=== PATIENT | male | born 2005 | race Caucasian/White ===

== ENCOUNTER 2024-01-08 14:44 | Emergency (ER) | payer OTHER, SELFPAY ==
[2024-01-08 14:53] VITALS: BP 142/86
[2024-01-08 17:08] LABS: % Basophils 0.5 % (0-2); % Eosinophils 0.7 % (0-6); % Immature Granulocytes 0.2 % (0-0.5); % Lymphocytes 22.8 % (20.5-51.1); % Neutrophils 66.8 % (42.2-75.2); Absolute Basophils 0.1 10^3/uL (0-0.2); Absolute Eosinophils 0.1 10^3/uL (0-0.7); Absolute Lymphocytes 2.2 10^3/uL (1.2-3.4); Absolute Monocytes 0.9 10^3/uL (0.1-0.6); Absolute Neutrophils 6.4 10^3/uL (1.4-6.5); Hematocrit 45.3 % (39.0-52.0); Hemoglobin 15.9 g/dL (13.0-18.0); Mean Corp Hgb Conc. 35.1 g/dL (33.0-37.0); Mean Corpuscular Hgb 30.1 pg (27.0-31.0); Mean Corpuscular Volume 85.6 fL (80.0-94.0); Mean Platelet Volume 9.3 fL (7.4-10.4); Nucleated Red Blood Cells % 0 % (-); Platelet Count 201 10^3/uL (130-400); Red Blood Cell Count 5.29 10^6/uL (4.70-6.10); Red Cell Dist. Width 12.4 % (11.5-14.5); White Blood Cell Count 9.5 10^3/uL (4.8-10.8)
[2024-01-08 17:11] LABS: Urine Albumin Negative (Neg - Trace); Urine Bilirubin Negative (Negative); Urine Character Clear (Clear); Urine Color Straw; Urine Glucose Negative (Negative); Urine Ketone Negative (Negative); Urine Leukocyte Negative (Negative); Urine Nitrite Negative (Negative); Urine Occult Blood Negative (Negative); Urine Urobilinogen Negative (Neg - 1+); Urine pH 6.5 (5.0-9.0)
[2024-01-08 17:20] LABS: ALT (SGPT) 30 U/L (0-50); AST (SGOT) 29 U/L (17-59); Albumin 4.5 g/dl (3.5-5.0); Alkaline Phosphatase 61 U/L (38-126); Blood Urea Nitrogen 15 mg/dl (9-20); Calcium 9.1 mg/dl (8.4-10.2); Carbon Dioxide 27 mmol/L (22-30); Chloride 104 mmol/L (98-107); Glucose 147 mg/dl (70-99); Lipase 56 U/L (23-300); Potassium 4.1 mmol/L (3.5-5.1); Sodium 137 mmol/L (135-145); Total Bilirubin 0.3 mg/dl (0.2-1.3); Total Protein 7.1 g/dl (6.3-8.2); eGFR > 60.00
[2024-01-08 17:49] VITALS: BMI 26.4
--- NOTE | 2024-01-08 20:27 | ED.GENMED ---
History of Present Illness
General
Chief Complaint: Abdominal Symptoms
Source: patient
Exam Limitations: none
Time Seen by Provider: 01/08/24 17:14
Nursing documentation reviewed up to this point in time: agreed with
Travel History
Have you had any contact with someone who has COVID-19?: No
Do you have any symptoms of coronavirus? Fever > 100 degrees, chills, cough, shortness of breath, sore throat, loss of taste or smell, muscle aches, or headache?: No
History of Present Illness
History of Present Illness:
18-year-old male without significant chronic medical conditions presenting to the emergency department today with concerns of 1 week of left-sided lower abdominal pain also has had change in bowel movements and feels somewhat bloated denies history
of GI issues in the past noted some red discoloration to stool 3 days ago. Denies any fever chest pain shortness of breath nausea or vomiting.
Review of Systems
Review of Systems
Allergies reviewed?: Yes
All Other Systems: ROS reviewed and negative except as documented in HPI and ROS
Phy Exam
Physical Exam
Physical Exam:
GENERAL: Alert , in no apparent distress
EYE: pupils equal and reactive
NECK: Supple, no significant adenopathy.
ENT: o/p clr, mmm.
CARDIAC: Regular rate and rhythm .
LUNGS: Clear breath sounds bilaterally, no acute respiratory distress, no wheezes/rales/rhonchi
ABDOMEN: Abdominal pain the left lower quadrant otherwise benign abdomen. Patient refused rectal examination
NEUROLOGICAL: Alert and oriented, no focal neuro deficits
SKIN: Warm and dry, skin intact.
MUSCULOSKELETAL: No edema, well perfused.
PSYCH: Normal and appropriate interaction.
Course
Orders/Labs/Results
Orders:
Orders
01/08/24 16:43
IV Insert/Care/Rem.- Treatment PRN
01/08/24 16:46
Complete Blood Count/With Diff Urgent
Comprehensive Metabolic Panel Urgent
Lipase Urgent
Urinalysis Reflex To Culture Urgent
Date Specimen was Collected: 01/08/24
Time Specimen was Collected: 16:43
01/08/24 17:51
CT Abd/Pel (IV only)-DH only Urgent
Comment:
Reason For Exam: llq pain
Abnormal Lab Results
01/08/24
16:46
Absolute Monos (auto) 0.9 H 10^3/uL
(0.1-0.6)
Glucose 147 H mg/dl
(70-99)
01/08/24 16:46
01/08/24 16:46
Vital Signs
Initial and Last Documented VS:
Initial Vital Signs
Temp Pulse Resp BP Pulse Ox
98.0 F 114 16 142/86 98
01/08/24 14:53 01/08/24 14:53 01/08/24 14:53 01/08/24 14:53 01/08/24 14:53
Last Documented Vital Signs
Temp Pulse Resp BP Pulse Ox
98.0 F 87 19 121/74 100
01/08/24 14:53 01/08/24 20:32 01/08/24 20:32 01/08/24 20:32 01/08/24 20:32
MDM/Problems Addressed
MDM/Problems Addressed:
18-year-old male presenting to the emergency department today with concerns of 1 week of abdominal discomfort mainly to the left side and feelings of bloating and pressure to the abdomen. Also noted some redness to his stool couple days ago which
has since resolved. Upon arrival initial heart rate was elevated but improved without specific treatment. Labs were unremarkable. Abdominal examination did show pain to the left side of the abdomen CT scan was obtained that did not show emergent
findings patient's symptoms could be consistent with constipation. He was offered to do a rectal examination to evaluate for potential hemorrhoids however he refused this and will follow close with the primary care doctor. Return precautions given.
*Critical Care Note
Total Time (30-74mins, 75-104mins- exclusive of procedures): Not Applicable
ED Attending Note
-
Portions of this chart may have been created with voice recognition software.� Occasional wrong word or��sound alike� substitutions may have occurred due to the inherent limitations of voice recognition software.
Discharge Plan
Departure
Patient Disposition: Home (Routine Discharge)
Date of Disposition: 01/08/24
Time of Disposition: 20:27
Patient with high blood pressure during this ER visit?: No
Condition: Good
Covid-19: Not Applicable
Discharge Problem:
Abdominal pain
Instructions: Abdominal Pain
Prescriptions:
New
polyethylene glycol 3350 [ClearLax] 17 gram/dose powder
4 g PO DAILY Qty: 119 0RF
Referrals:
Shruti De La Rosa MD [Family Provider] -
Activity Restrictions/Additional Instructions:
You came to the emergency department today with concerns of abdominal discomfort. Here your reassuring evaluation. This could be constipation. Please take MiraLAX once daily and stay very hydrated. Please also use a hemorrhoidal ointment
[id number] as the bleeding could be from hemorrhoid. Return to the emergency department immediately for any worsening, new or concerning symptoms. Otherwise please follow-up closely with the primary care doctor within 1 to 2 weeks.
Interventions
Interventions:
*General Assessment Last Done: 01/08/24 17:03
ED- Fall Risk Assessment Last Done: 01/08/24 17:02
*ED COVID-19 Vaccine History Last Done: 01/08/24 14:53
*Nursing Disposition Last Done: 01/08/24 20:33
RZ-Cguabg-Zwxoylzryp Assessment Last Done: 01/08/24 17:02
Discharge Date and Time
Discharge Date/Time: 01/08/24 20:34
[2024-01-08 20:32] VITALS: BP 121/74
== END 2024-01-08 20:34 | disposition home or self-care (01) ==
LOC: EMR 14:44
PROVIDERS: EMERGENCY PHYSICIAN Emergency Medicine; FAMILY PHYSICIAN Emergency Medicine
DX: R10.32 Left lower quadrant pain (principal); R14.0 Abdominal distension (gaseous)
CPT/HCPCS: 99285; 74177; 80053; 81003; 83690; 85025; Q9967

== ENCOUNTER 2024-11-16 18:32 | Emergency (ER) | payer OTHER, SELFPAY ==
[2024-11-16 18:42] VITALS: BP 124/65
[2024-11-16 18:58] LABS: % Basophils 0.6 % (0-2); % Eosinophils 1.4 % (0-6); % Immature Granulocytes 0.5 % (0-0.5); % Lymphocytes 21.2 % (20.5-51.1); % Neutrophils 67.3 % (42.2-75.2); Absolute Basophils 0.1 10^3/uL (0-0.2); Absolute Eosinophils 0.2 10^3/uL (0-0.7); Absolute Immature Granulocytes 0.1 10^3/uL (0-0.05); Absolute Monocytes 1.3 10^3/uL (0.1-0.6); Absolute Neutrophils 9.5 10^3/uL (1.4-6.5); Hematocrit 44.6 % (39.0-52.0); Hemoglobin 15.5 g/dL (13.0-18.0); Mean Corp Hgb Conc. 34.8 g/dL (33.0-37.0); Mean Corpuscular Hgb 30.1 pg (27.0-31.0); Mean Corpuscular Volume 86.6 fL (80.0-94.0); Mean Platelet Volume 8.9 fL (7.4-10.4); Nucleated Red Blood Cells % 0 % (-); Platelet Count 209 10^3/uL (130-400); Red Blood Cell Count 5.15 10^6/uL (4.70-6.10); Red Cell Dist. Width 12.4 % (11.5-14.5); White Blood Cell Count 14.1 10^3/uL (4.8-10.8)
[2024-11-16 19:10] LABS: ALT (SGPT) 35 U/L (0-50); AST (SGOT) 29 U/L (17-59); Albumin 4.4 g/dl (3.5-5.0); Alkaline Phosphatase 57 U/L (38-126); Blood Urea Nitrogen 20 mg/dl (9-20); Calcium 9.3 mg/dl (8.4-10.2); Carbon Dioxide 31 mmol/L (22-30); Chloride 98 mmol/L (98-107); Glucose 96 mg/dl (70-99); Sodium 137 mmol/L (135-145); Total Bilirubin 0.3 mg/dl (0.2-1.3); Total Protein 6.8 g/dl (6.3-8.2); eGFR > 60.00
[2024-11-16 23:21] VITALS: BP 124/79; BMI 28.7
--- NOTE | 2024-11-17 00:56 | ED.GENMED ---
History of Present Illness
General
Chief Complaint: Rectal Bleeding
Source: patient
Exam Limitations: none
Time Seen by Provider: 11/17/24 00:10
Nursing documentation reviewed up to this point in time: agreed with
History of Present Illness
History of Present Illness:
19-year-old male with history as documented presents to the emergency room for evaluation of bloody diarrhea. Patient reports symptoms started about 10 days ago and have been constant since that time. He reports soft liquidy stools with blood
mixed in with every bowel movement. He says he will have some occasional crampy abdominal pain associated with it. He denies any vomiting. Denies any fevers or chills. Denies any recent antibiotics, denies any recent travel. He does note that
he had an episode of blood mixed with stools about a year ago that resolved after few days. He says that he did call and schedule an appointment with his primary doctor for Wednesday and he has scheduled an appointment to see a GI doctor in early
December given that this is his second episode but with persistent symptoms decided to come to the ER for evaluation
Review of Systems
Review of Systems
All Other Systems: ROS reviewed and negative except as documented in HPI and ROS
Constitutional: Denies fever
Respiratory: Denies trouble breathing
Cardiac: Denies chest pain or palpitations
ABD/GI: Reports abdominal pain, diarrhea and bloody stools; Denies nausea or vomiting
: Denies flank pain
Musculoskeletal: Denies neck pain or back pain
Neurological: Denies headache
Phy Exam
Physical Exam
Physical Exam:
General: Awake, alert, oriented x3; no acute distress
Head: Normocephalic, atraumatic
Eyes: Conjunctiva normal, sclera anicteric
Throat: Airway intact, handling secretions
Neck: Trachea midline, supple without meningismus
Lungs: Breathing comfortably no distress
Heart: Regular rate and rhythm
Abd: Soft, non distended, nontender
Rectal: No external hemorrhoids or fissures noted, no stool or blood noted in the rectal vault, no internal masses
Neuro: No gross deficits
Extremities: Warm and well-perfused
Scores
Heart Failure Risk
Heart Failure Risk Score: Not Applicable
Heart Score for Chest Pain Patients
STEMI patient?: Not applicable
Withdrawal Assessment of Alcohol
Withdrawal Assessment Completed?: Not applicable
Course
Orders/Labs/Results
Orders:
Orders
11/16/24 18:49
Complete Blood Count/With Diff Urgent
Comprehensive Metabolic Panel Urgent
11/17/24 00:51
Amoxicillin 875 mg/Clav 125 mg [Augmentin 875 mg/125 mg] 1 tablet PO NOW STA
11/17/24 00:53
Stool Culture Urgent
SHANNON Source: Feces/Stool
Specimen Description:
Date Specimen was Collected: 11/17/24
Time Specimen was Collected: 00:57
Abnormal Lab Results
11/16/24
18:49
WBC 14.1 H 10^3/uL
(4.8-10.8)
Abs Immat Gran (auto) 0.1 H 10^3/uL
(0-0.05)
Absolute Neuts (auto) 9.5 H 10^3/uL
(1.4-6.5)
Absolute Monos (auto) 1.3 H 10^3/uL
(0.1-0.6)
Carbon Dioxide 31 H mmol/L
(22-30)
11/16/24 18:49
11/16/24 18:49
Vital Signs
Initial and Last Documented VS:
Initial Vital Signs
Temp Pulse Resp BP Pulse Ox
36.7 C 95 18 124/65 100
11/16/24 18:42 11/16/24 18:42 11/16/24 18:42 11/16/24 18:42 11/16/24 18:42
Last Documented Vital Signs
Temp Pulse Resp BP Pulse Ox
36.7 C 72 16 124/79 100
11/16/24 18:42 11/16/24 23:21 11/16/24 23:21 11/16/24 23:21 11/16/24 23:21
MDM/Problems Addressed
Differential Diagnosis Includes:
Colitis, Crohn's/UC, bleeding hemorrhoid
MDM/Problems Addressed:
19-year-old male presents with bloody diarrhea for the past 10 days. Vitals stable. Exam as above�notably essentially unremarkable rectal examination. Labs sent off including a CBC which showed a marginal leukocytosis, normal robust hemoglobin of
15.5. CMP no clinically significant abnormalities. No fever and no abdominal tenderness, no indication for emergent imaging at this point in time. We did send stool studies off for culture. My clinical impression at this point is that this is
likely a case of colitis. Given that there is some blood with his diarrhea reasonable to cover with antibiotics pending stool culture. He already has follow-up appointment scheduled with his primary on Wednesday as well as with gastroenterology and I
think this is a reasonable follow-up plan. Advised regarding bland diet and we spoke about detailed return precautions. All questions answered.
*Pulse Oximetry
Patient hypoxic: no
*Critical Care Note
Total Time (30-74mins, 75-104mins- exclusive of procedures): Not Applicable
Data Reviewed
Source: patient
Further Testing Considered But Not Given:
Considered CT abdomen and pelvis as above
ED Attending Note
-
Portions of this chart may have been created with voice recognition software.� Occasional wrong word or��sound alike� substitutions may have occurred due to the inherent limitations of voice recognition software.
Discharge Plan
Departure
Patient Disposition: Home (Routine Discharge)
Date of Disposition: 11/17/24
Time of Disposition: 00:53
Patient with high blood pressure during this ER visit?: No
Discharge Problem:
Blood in stool, Diarrhea
Instructions: Bloody Stools, Adult (DC)
Prescriptions:
New
amoxicillin-pot clavulanate 875-125 mg tablet
1 tab PO BID Qty: 14 0RF
No Action
polyethylene glycol 3350 [ClearLax] 17 gram/dose powder
4 g PO DAILY Qty: 119 0RF
Referrals:
Shruti De La Rosa MD [Family Provider] - Keep scheduled appt
Activity Restrictions/Additional Instructions:
Thank you for visiting the Emergency Department at [facility].
1. Please schedule a follow up appointment as directed. Call first thing tomorrow morning to make an appointment.
2. If indicated, please take your medications as instructed and indicated on discharge paperwork.
3. If any of your symptoms do not improve, or persist, or become more severe within 6-12 hours, please return to the emergency department for further care.
4. Please return to the emergency department if you develop a headache, neck pain/stiffness, fever greater than 100.4F, chest pain, shortness of breath, persistent nausea, vomiting, slurred speech, difficulty walking, numbness/tingling, weakness,
signs of infection or any other symptoms that are worrisome to you.
Please call [phone] if you have any questions.
Interventions
Interventions:
*Risk Screen - Suicide Last Done: 11/16/24 23:21
*General Assessment Last Done: 11/16/24 23:21
*Neglect/Abuse Screening Last Done: 11/16/24 23:21
*ED COVID-19 Vaccine History Last Done: 11/16/24 23:21
*Nursing Disposition Last Done: 11/17/24 01:15
KY-Blrocq-Eniglugpai Assessment Last Done: 11/16/24 23:21
ED- Cardiac Assessment Last Done: 11/16/24 23:21
ED- Pulmonary Assessment Last Done: 11/16/24 23:21
Discharge Date and Time
Print Language: [place]
[2024-11-17] MEDS: AUGMENTIN 875 MG/125 MG 1 TABLET PO (01:00)
== END 2024-11-17 01:15 | disposition home or self-care (01) ==
LOC: EMR 18:32
PROVIDERS: Emergency Medicine; EMERGENCY PHYSICIAN Emergency Medicine; FAMILY PHYSICIAN Emergency Medicine
DX: K92.1 Melena (principal); R19.7 Diarrhea, unspecified
CPT/HCPCS: 99283; 80053; 85025; 87045; 87046; 87427

== ENCOUNTER 2024-11-24 20:01 | Inpatient (IN) | payer OTHER, SELFPAY ==
[2024-11-24 12:06] VITALS: BP 135/88
--- NOTE | 2024-11-24 12:08 | ED.GENMED ---
ED Provider Triage
<Tree Wisdom PA-C - Last Filed: 11/24/24 12:11>
-
Patient seen by provider in Triage?: Seen in Triage
Attestation: A medical screening examination has been initiated by a qualified medical provider. Based on the assessment performed at this time, it has been determined that an emergent medical condition may exist and the patient has been informed
that further medical evaluation and possible additional diagnostic testing may be needed.
HPI: 19-year-old male presents the emergency department for evaluation of continued abdominal pain and bloody diarrhea. Was seen here last week and diagnosed presumptively with colitis, treated with Augmentin however symptoms of not improved
GENERAL: Alert , in no apparent distress
EYE: No visual abnormalities.
NECK: Trachea midline
ENT: No visible abnormalities.
LUNGS: No acute respiratory distress
NEUROLOGICAL: Alert and oriented
SKIN: Skin intact. No visible changes.
MUSCULOSKELETAL: Moving extremities normally
PSYCH: Normal and appropriate interaction.
This is a medical evaluation conducted in person to initiate diagnostic evaluation and provide initial therapeutics. Please see further documentation by the treating clinician.
History of Present Illness
<Tree Wisdom PA-C - Last Filed: 11/24/24 12:11>
General
Chief Complaint: Abdominal Symptoms
Time Seen by Provider: 11/24/24 13:20
<Ochoa Khan DO - Last Filed: 11/24/24 16:06>
General
Source: patient
History of Present Illness
History of Present Illness:
19-year-old male presents to the emergency room complaining of frequent bloody stools over the past 3 weeks or so. Patient also had about 15 pound weight loss over that period of time. Patient had a similar episode about 10 months ago for which
she was seen in the emergency room. At that time he had frequent bloody stools for about a week and 1/2 to 2 weeks. Symptoms eventually resolved and he was doing well until this latest episode. Patient has not seen a retail product advisor in the
past. He does have abdominal pain currently that waxes and wanes in intensity. He has not been eating because he has a poor appetite and because when he does eat his crampy abdominal pain seems to worsen.
Phy Exam
<Ochoa Khan DO - Last Filed: 11/24/24 16:06>
Physical Exam
Physical Exam:
General: Awake, Alert, Oriented X3. Very thin no acute distress.
Vitals: Tachycardia
Head: Atraumatic
Eyes: Pupils equal, EOMI
Throat: Airway intact, no exudates
Neck: Trachea midline
Lungs: Clear and equal b/l
Heart: Regular rate, no murmurs
Abd: Soft, mild, diffusely tender, No pulsatile mass
Rectal: Deferred
Neuro: Nonfocal
Skin: Warm, dry, no rash
Extremities: pulses equal b/l, no edema
Course
<Tree Wisdom PA-C - Last Filed: 11/24/24 12:11>
Orders/Labs/Results
Orders:
Orders
11/24/24 12:09
Iohexol [Omnipaque] 50 ml .ROUTE .RUST-MED ONE
11/24/24 12:10
CT Abd/pel W Iv And Oral Contr Urgent
Comment:
Reason For Exam: abd pain/bloody diarrhea
Iohexol [Omnipaque] See Protocol PO NOW STA
11/24/24 12:30
CRP [C-Reactive Protein] Urgent
Complete Blood Count/With Diff Urgent
Comprehensive Metabolic Panel Urgent
ESR [Erythrocyte Sed Rate] Urgent
Manual Differential Urgent
11/24/24 13:47
0.9% Sodium Chloride 1000 ml [Nss] 1,000 ml IV BOLUS
11/24/24 14:09
CDIFF [C difficile Antigen & Toxins] Urgent
SHANNON Source: Feces/Stool
Specimen Description:
11/24/24 15:50
Calprotectin, Fecal [S] Urgent
Abnormal Lab Results
11/24/24
12:30
WBC 15.1 H 10^3/uL
(4.8-10.8)
Abs Neuts (Manual) 11.0 H 10^3/uL
(1.4-6.5)
Band Neutrophils 29 H %
(0-3)
Lymphocytes (Manual) 15 L %
(20-51)
Monocytes (Manual) 10 H %
(2-9)
11/24/24 12:30
11/24/24 12:30
Vital Signs
Initial and Last Documented VS:
Initial Vital Signs
Temp Pulse Resp BP Pulse Ox
98.5 F 114 16 135/88 93
11/24/24 12:06 11/24/24 12:06 11/24/24 12:06 11/24/24 12:06 11/24/24 12:06
Last Documented Vital Signs
Temp Pulse Resp BP Pulse Ox
98.5 F 82 16 118/58 100
11/24/24 12:06 11/24/24 15:53 11/24/24 15:53 11/24/24 15:53 11/24/24 15:53
Jayelt;Ochoa Khan DO - Last Filed: 11/24/24 16:06>
Orders/Labs/Results
Orders:
Orders
11/24/24 12:09
Iohexol [Omnipaque] 50 ml .ROUTE .STK-MED ONE
11/24/24 12:10
CT Abd/pel W Iv And Oral Contr Urgent
Comment:
Reason For Exam: abd pain/bloody diarrhea
Iohexol [Omnipaque] See Protocol PO NOW STA
11/24/24 12:30
CRP [C-Reactive Protein] Urgent
Complete Blood Count/With Diff Urgent
Comprehensive Metabolic Panel Urgent
ESR [Erythrocyte Sed Rate] Urgent
Manual Differential Urgent
11/24/24 13:47
0.9% Sodium Chloride 1000 ml [Nss] 1,000 ml IV BOLUS
11/24/24 14:09
CDIFF [C difficile Antigen & Toxins] Urgent
SHANNON Source: Feces/Stool
Specimen Description:
11/24/24 15:50
Calprotectin, Fecal [S] Urgent
Abnormal Lab Results
11/24/24
12:30
WBC 15.1 H 10^3/uL
(4.8-10.8)
Abs Neuts (Manual) 11.0 H 10^3/uL
(1.4-6.5)
Band Neutrophils 29 H %
(0-3)
Lymphocytes (Manual) 15 L %
(20-51)
Monocytes (Manual) 10 H %
(2-9)
11/24/24 12:30
11/24/24 12:30
Vital Signs
Initial and Last Documented VS:
Initial Vital Signs
Temp Pulse Resp BP Pulse Ox
98.5 F 114 16 135/88 93
11/24/24 12:06 11/24/24 12:06 11/24/24 12:06 11/24/24 12:06 11/24/24 12:06
Last Documented Vital Signs
Temp Pulse Resp BP Pulse Ox
98.5 F 82 16 118/58 100
11/24/24 12:06 11/24/24 15:53 11/24/24 15:53 11/24/24 15:53 11/24/24 15:53
Jayelt;Ochoa Khan DO - Last Filed: 11/24/24 16:06>
MDM/Problems Addressed
Differential Diagnosis Includes:
Crohn's disease, ulcerative colitis, infectious colitis
MDM/Problems Addressed:
Overall presentation seems most consistent with inflammatory bowel disease. Discussed patient's presentation with Dr. Ramirez. She came to the emergency room to evaluate the patient. Requests stool studies which have been ordered. Management will
be based upon results of the stool studies. Will hold off on further antibiotics as he just completed a course of p.o. antibiotics. Patient did have a 15 pound weight loss and he is already quite thin.
<Ochoa Khan DO - Last Filed: 11/24/24 16:06>
*Radiology
Radiology exam reviewed: radiology read reviewed
*Pulse Oximetry
Patient hypoxic: no
*Critical Care Note
Total Time (30-74mins, 75-104mins- exclusive of procedures): Not Applicable
ED Attending Note
<Tree Wisdom PA-C - Last Filed: 11/24/24 12:11>
-
Portions of this chart may have been created with voice recognition software.� Occasional wrong word or��sound alike� substitutions may have occurred due to the inherent limitations of voice recognition software.
Discharge Plan
Departure
Patient Disposition: Admit
Date of Disposition: 11/24/24
Time of Disposition: 16:04
Presentation/result/management discussed w/ accepting MD/DO: Hospitalist
Condition: Fair
Discharge Problem:
Colitis
Prescriptions:
No Action
polyethylene glycol 3350 [ClearLax] 17 gram/dose powder
4 g PO DAILY Qty: 119 0RF
amoxicillin-pot clavulanate 875-125 mg tablet
1 tab PO BID Qty: 14 0RF
Referrals:
Shruti De La Rosa MD [Family Provider] -
Interventions
Interventions:
*Risk Screen - Suicide Last Done: 11/24/24 12:06
*General Assessment Last Done: 11/24/24 15:53
*Neglect/Abuse Screening Last Done: 11/24/24 12:06
*ED COVID-19 Vaccine History Last Done: 11/24/24 15:53
RE-Vrodzq-Gzagyxxbct Assessment Last Done: 11/24/24 14:38
Discharge Date and Time
Print Language: NEPALI
[2024-11-24] MEDS: OMNIPAQUE 50 ML PO (12:11)
[2024-11-24 12:44] LABS: Hematocrit 48.4 % (39.0-52.0); Hemoglobin 17.2 g/dL (13.0-18.0); Mean Corp Hgb Conc. 35.5 g/dL (33.0-37.0); Mean Corpuscular Hgb 30.8 pg (27.0-31.0); Mean Corpuscular Volume 86.6 fL (80.0-94.0); Mean Platelet Volume 8.6 fL (7.4-10.4); Platelet Count 238 10^3/uL (130-400); Red Blood Cell Count 5.59 10^6/uL (4.70-6.10); Red Cell Dist. Width 12.7 % (11.5-14.5); White Blood Cell Count 15.1 10^3/uL (4.8-10.8)
[2024-11-24 12:58] LABS: ALT (SGPT) 34 U/L (0-50); AST (SGOT) 24 U/L (17-59); Albumin 4.6 g/dl (3.5-5.0); Alkaline Phosphatase 56 U/L (38-126); Blood Urea Nitrogen 14 mg/dl (9-20); Calcium 8.7 mg/dl (8.4-10.2); Carbon Dioxide 29 mmol/L (22-30); Chloride 98 mmol/L (98-107); Glucose 93 mg/dl (70-99); Potassium 4.4 mmol/L (3.5-5.1); Sodium 137 mmol/L (135-145); Total Bilirubin 0.9 mg/dl (0.2-1.3); Total Protein 6.6 g/dl (6.3-8.2); eGFR > 60.00
[2024-11-24 13:12] LABS: Band Neutrophils 29 % (0-3); Eosinophils 2 % (0-6); Lymphocytes 15 % (20-51); Monocytes 10 % (2-9); Platelets Checked Yes; Segmented Neutrophils 44 % (42-75)
[2024-11-24 13:13] LABS: Normal RBC Morphology Yes; Total Cells Counted 100
[2024-11-24 13:21] LABS: Erythrocyte Sed Rate 9 mm/hour (0-20)
[2024-11-24 13:30] LABS: C-Reactive Protein < 5.00 mg/L (0.0-10.00)
[2024-11-24] MEDS: NSS 1000 IV (13:52)
[2024-11-24 15:53] VITALS: BP 118/58
--- NOTE | 2024-11-24 16:15 | CON.GI ---
Consultation
-
Date/Time Consultation Requested: 11/24/2024, 4 PM
Date/Time Consultation Performed: 11/24/2024, 4 PM
Requesting Provider: Dr. Khan, emergency room
Performing Provider: Dr. Ramirez
Reason for Consultation: Bloody diarrhea
Medical History
Chief Complaint / HPI
Chief Complaint: Bloody diarrhea
History of Present Illness:
Donnie is a 19-year-old male with no significant past medical history who comes in with 2 to 3 weeks of frequent multiple episodes of bloody diarrhea. Gets abdominal cramping and pain during the bowel movements and if he eats. He has lost 15 pounds
over these past few weeks. He was here on 16 November and had a stool culture done that was negative. No C. difficile was tested. At that time he did have a leukocytosis of 14,000, no inflammatory studies were done. Today, 11/24/2024 white count
15,000, normal CRP, stool studies have been ordered.
CT scan was done with oral and IV contrast. There is no oral contrast past the hepatic flexure but there is suspicious wall thickening of the transverse to the sigmoid. No pneumatosis obstruction or free air.
When patient was here in October he was given a round of Augmentin.
Patient has never been seen by outpatient GI and has an appointment for December. No family history of inflammatory bowel disease. Denies any outpatient medications although he has been taking few Imodium at night just to get through the night.
Patient states he has multiple more than 10 bloody bowel movements over the past 2 weeks.
Past Medical History
Past Medical History: None
Past Surgical History: None
Social History
Tobacco: Non-Smoker
Drug: None
Living: With Family
Family History
Family History: Other (Denies IBD)
Allergies / Home Medications
Allergy/AdvReac Type Severity Reaction Status Date / Time
No Known Allergies Allergy Verified 11/24/24 12:06
�Medication �Instructions �Recorded
polyethylene glycol 3350 17 4 g PO DAILY #119 grams 01/08/24
gram/dose oral powder (ClearLax)
amoxicillin 875 mg-potassium 1 tab PO BID #14 tabs 11/17/24
clavulanate 125 mg tablet
Review of Systems
-
All other systems: A 12 pt ROS was Negative except as stated above in HPI
Vital Signs
Temp Pulse Resp BP Pulse Ox
98.5 F 82 16 118/58 100
11/24/24 12:06 11/24/24 15:53 11/24/24 15:53 11/24/24 15:53 11/24/24 15:53
Physical Exam
Exam
General: No Apparent Distress
HEENT: Normocephalic and Anicteric
Respiratory: Clear
Cardiac: S1/S2
GI: Soft and Tender (Mild tenderness diffusely in the lower abdomen)
Neuro: AO x 3
Psych: Calm
Results
WBC 15.1 10^3/uL (4.8-10.8) H 11/24/24 12:30
Hgb 17.2 g/dL (13.0-18.0) 11/24/24 12:30
Hct 48.4 % (39.0-52.0) 11/24/24 12:30
MCV 86.6 fL (80.0-94.0) 11/24/24 12:30
Plt Count 238 10^3/uL (130-400) 11/24/24 12:30
Sodium 137 mmol/L (135-145) 11/24/24 12:30
Potassium 4.4 mmol/L (3.5-5.1) 11/24/24 12:30
Chloride 98 mmol/L (98-107) 11/24/24 12:30
Carbon Dioxide 29 mmol/L (22-30) 11/24/24 12:30
BUN 14 mg/dl (9-20) 11/24/24 12:30
Creatinine 1.3 mg/dL (0.7-1.3) 11/24/24 12:30
Calcium 8.7 mg/dl (8.4-10.2) 11/24/24 12:30
Total Bilirubin 0.9 mg/dl (0.2-1.3) 11/24/24 12:30
AST 24 U/L (17-59) 11/24/24 12:30
ALT 34 U/L (0-50) 11/24/24 12:30
Alkaline Phosphatase 56 U/L (38-126) 11/24/24 12:30
Diagnostic Image Results:
11/24/2024 white count 15,000, normal CRP, stool studies have been ordered.
CT scan was done with oral and IV contrast. There is no oral contrast past the hepatic flexure but there is suspicious wall thickening of the transverse to the sigmoid. No pneumatosis obstruction or free air.
Prior GI Procedures: None
EGD:
Colonoscopy:
Assessment / Plan
-
Donnie is a 19-year-old male with no significant past medical history who had an episode in December 2023 with acute onset bloody diarrhea who had no GI issues in the interim until September. In the September he started having urgent diarrhea now for the
past 2 to 3 weeks he has lost 15 pounds and has significant urgency abdominal cramping and bloody diarrhea found to have colitis on CT scan from the sigmoid to the transverse colon
# Infectious versus inflammatory
-- Check C. difficile, calprotectin
-- If C. difficile is negative we will proceed to flexible sigmoidoscopy for likely diagnosis of ulcerative colitis which would be a new diagnosis
-- Hold off on steroids until we have the C. difficile back
-- Clear liquids, IV fluids, once daily PPI, DVT prophylaxis
Data Reviewed
-
CT Scan: Report Reviewed by me
Old Records: Reviewed
-
-
Thank you for consultation and allowing me to participate in the patient's care. Please call the rehabilitation aide GI physician during the after hours with any questions or concerns.
[2024-11-24 18:00] VITALS: BMI 24.8
--- NOTE | 2024-11-24 18:11 | EDRN ---
Pt has had lower abdominal pain x 3 weeks and says it has gotten worse this week. Pt has had bloody diarrhea and reportedly lost weight going from 165lbs - 154 lbs in 3 weeks. Pt was on abx during this time period. Pt denies fever/chills/cough,
cp, sob, urinary symptoms, weakness, dizziness. Pt knew he needed a CT which prompted today's ED visit. Pt says this happened last year and he was discharged because CT was normal.
--- NOTE | 2024-11-24 19:37 | HPS.HSE ---
Family Physician
-
Family Physician: Shruti De La Rosa MD
Chief Complaint
-
Rectal bleeding
History of Present Illness
19-year-old man presents with continued abdominal pain and bloody diarrhea. He was seen here last week and diagnosed with presumptive colitis and treated with Augmentin, however symptoms have not improved. During my exam he had to go to the toilet
twice. The CT in the ER showed:
Markedly limited evaluation of large bowel due to marked paucity of intra-abdominal fat and lack of oral contrast opacification distal to the hepatic flexure of the large bowel.
Findings suspicious for concentric wall thickening of the transverse colon, descending colon and sigmoid, such as COLITIS.
No findings to suggest colonic pneumatosis, intestinal obstruction or free air.
Small volume free fluid in the dependent true pelvis.
Medical History
Past Medical History
Past Medical History: Reports Other
Additional Past Medical History:
SVT (supraventricular tachycardia)
Elevated testosterone level in male
Past Surgical History: Reports None
Social History
Tobacco: Non-smoker
Alcohol: Occasional
Personal: Single
Family History
Family History: Not pertinent
Allergies / Home Medications
Allergies reflects when Allergies were last updated in [facility].
Home Medications with original date entered in [facility]
Allergy/Medication List:
Allergies
Allergy/AdvReac Type Severity Reaction Status Date / Time
No Known Allergies Allergy Verified 11/24/24 12:06
Home Medications
No Meds [No Current Medications] 11/24/24
Review of Systems
-
History Source: Patient
A 12 point ROS was completed and negative except as noted: Yes
Physical Exam
Vital Signs
Vital Signs
Temp Pulse Resp BP Pulse Ox
98.5 F 82 16 118/58 100
11/24/24 12:06 11/24/24 15:53 11/24/24 15:53 11/24/24 15:53 11/24/24 15:53
Physical Exam
General: Well Developed, Well Nourished, Conversant and Appears in Distress
HEENT: NormoCephalic, Anicteric, Moist mucous membranes, Good Dentition, Nose Appears Normal and Ears Appear Normal
Respiratory: Clear
Cardiac: S1/S2 and Regular Rhythm
GI: Soft, Non Distended and Tender
Musculoskeletal: No Clubbing, No Cyanosis and No Edema
Skin: Warm and Dry; No Rash
Neuro: Awake, Alert, Oriented and AO x 3
Psych: Calm
Laboratory Results
-
11/24/24 12:30
11/24/24 12:30
Laboratory Results
Total Bilirubin 0.9 mg/dl (0.2-1.3) 11/24/24 12:30
AST 24 U/L (17-59) 11/24/24 12:30
ALT 34 U/L (0-50) 11/24/24 12:30
Alkaline Phosphatase 56 U/L (38-126) 11/24/24 12:30
Data Reviewed
-
Lab Data: Labs Reviewed by me
Impression/Plan
-
IMPRESSION:
19 man with rectal bleeding. Patient seen by GI. Gi states:
'urgent diarrhea now for the past 2 to 3 weeks he has lost 15 pounds and has significant urgency abdominal cramping and bloody diarrhea found to have colitis on CT scan from the sigmoid to the transverse colon
Infectious versus inflammatory
-- Check C. difficile, calprotectin
-- If C. difficile is negative we will proceed to flexible sigmoidoscopy for likely diagnosis of ulcerative colitis which would be a new diagnosis
-- Hold off on steroids until we have the C. difficile back
-- Clear liquids, IV fluids, once daily PPI, DVT prophylaxis
PLAN:
1. Bloody diarrhea - GI consult appreciated
Follow GI recommendations
Full code
VCD for DVTp
[2024-11-24 21:15] VITALS: BP 120/73; BMI 24.4
[2024-11-24] MEDS: ROXICODONE 5 MG PO (22:07)
[2024-11-24] MEDS: LOVENOX 40 MG SC (22:08)
[2024-11-24] MEDS: PROTONIX 40 MG PO (22:08)
[2024-11-24] MEDS: SOLU-MEDROL PF 20 MG IV (22:10)
[2024-11-24 23:51] VITALS: BP 102/73; BP 110/76; BP 127/69; PULSE 118; PULSE 87; PULSE 94
--- NOTE | 2024-11-24 23:51 | PTCARENOTE ---
Receive pt from ER. Pt alert oriented X3, calm and cooperative. Pt assist X1 to bed, steady gait. Pt oriented to the room, call chaney within reach. Pt states that he has lower abd pain. The pain is 7/10 and is throbbing in nature. VSS (T=99.7, HR=87,
RR=16, IY=189/73, PkL9=658% on RA). Pt states that he is having a bloody diarrhea, 2 episodes since admitted to the floor. Oxycodone 5mg given for pain as per order. Pt is on full liquids diet. Will continue to monitor the pt.
[2024-11-25] MEDS: SOLU-MEDROL PF 20 MG IV ×3 (05:13→21:23)
[2024-11-25 06:55] LABS: Hematocrit 42.5 % (39.0-52.0); Hemoglobin 15.1 g/dL (13.0-18.0); Mean Corp Hgb Conc. 35.5 g/dL (33.0-37.0); Mean Corpuscular Hgb 30.5 pg (27.0-31.0); Mean Corpuscular Volume 85.9 fL (80.0-94.0); Mean Platelet Volume 8.8 fL (7.4-10.4); Platelet Count 239 10^3/uL (130-400); Red Blood Cell Count 4.95 10^6/uL (4.70-6.10); Red Cell Dist. Width 12.7 % (11.5-14.5); White Blood Cell Count 14.3 10^3/uL (4.8-10.8)
[2024-11-25 07:17] VITALS: BP 108/63
[2024-11-25 07:18] VITALS: BP 116/65; BP 119/57; BP 125/65
[2024-11-25 07:27] LABS: Blood Urea Nitrogen 13 mg/dl (9-20); Carbon Dioxide 22 mmol/L (22-30); Chloride 99 mmol/L (98-107); Estimated Creatinine Clearance 91 ml/min; Glucose 95 mg/dl (70-99); Potassium 4.4 mmol/L (3.5-5.1); Sodium 134 mmol/L (135-145); eGFR > 60.00
--- NOTE | 2024-11-25 07:57 | W.PN.HOSP.TC ---
Addendum entered and electronically signed by Iman Perez MD 11/25/24 15:35:
I saw and evaluated the patient independently. I reviewed the resident�s note and agree with findings and plan as documented by Dr. Brady.
GENERAL: well developed, well nourished, male in no apparent distress
HEENT: NC/AT
HEART: regular rate and rhythm, +S1, +S2
LUNGS : clear to auscultation bilaterally
ABDOM: soft, nontender, nondistended, + bowel sounds
EXT: no cyanosis, clubbing, or edema
NEUROLOGIC: grossly intact
Bloody diarrhea--Likely due to ulcerative colitis--Patient reports 15 LB weight loss in the past 3 weeks--Prior history of bloody stools 10 months ago--apprec GI--C. diff neg--started on IV steroids--Patient was seen in the ED last week, was sent on
Augmentin without any relief--Stool studies�negative for Salmonella/Shigella/Campylobacter, negative for C. difficile--Hepatitis B�negative, TB QuantiFERON pending--CT abdomen�evidence of sigmoid to transverse colon colitis--PPI, pain
control--advance diet--FLEX sig Wednesday
DVT prophylaxis�Lovenox
code status--Full code
Original Note:
Today's Communication/Plan
-
Advance diet as tolerated
Continue with methylprednisolone
Flexible sigmoidoscopy on Wednesday
Assessment / Plan
Assessment / Plan
19-year-old man presenting to the ED with abdominal pain and bloody diarrhea since 3 weeks.
Impression/plan
Bloody diarrhea
Likely due to ulcerative colitis versus gastroenteritis
Patient reports 15 LB weight loss in the past 3 weeks
Prior history of bloody stools 10 months ago.
GI on board
Elevated white count in the ED at 15K, trended down to 14K today
Patient was seen in the ED last week, was sent on Augmentin without any relief.
Stool studies�negative for Salmonella/Shigella/Campylobacter, negative for C. difficile
Fecal calprotectin pending
Hepatitis B�negative, TB QuantiFERON pending
CT abdomen�evidence of sigmoid to transverse colon colitis
Started on IV steroids
Continue PPI
Pain control�oxycodone as needed
Advance diet as tolerated
Plan for flexible sigmoidoscopy on Wednesday
DVT prophylaxis�Lovenox
Full code
Anticipated Discharge: > 48 hours
Subjective/Interval History
-
Date of Service: November 25, 2024
Patient reports having 2 bloody bowel movements overnight. His nausea and abdominal discomfort has improved.
Objective Data
-
Labs:
Laboratory Results
11/25/24
06:31
WBC 14.3 H
Hgb 15.1
Hct 42.5
Plt Count 239
Sodium 134 L
Potassium 4.4
Chloride 99
Carbon Dioxide 22
BUN 13
Creatinine 1.2
Glucose 95
Calcium 9.0
Vital Signs:
Vital Signs
Temp Pulse Resp BP Pulse Ox
98.9 F 87 16 127/69 97
11/24/24 23:51 11/24/24 23:51 11/24/24 23:51 11/24/24 23:51 11/24/24 23:51
Physical Exam
-
General: Well Developed, Well Nourished and No Apparent Distress
HEENT: Normocephalic and Atraumatic
Respiratory: Clear to Auscultation
Cardiac: Regular Rhythm and S1/S2
GI: Soft, Nondistended, Normal Bowel Sounds and Tender
Skin: Warm and Dry
Neuro: Awake, Alert, Oriented and AO x 3
Psych: Calm
[2024-11-25 08:17] VITALS: BP 108/63
[2024-11-25 08:22] LABS: Hepatitis B Surface Antigen Negative (Negative)
--- NOTE | 2024-11-25 08:22 | W.PN.GI.CBS2 ---
Addendum entered and electronically signed by Cherrie Ramirez DO 11/25/24 11:52:
Patient seen and examined independently of [employer]. I agree with her note with my additions below
Donnie states that he has noticed some improvements. He is only had 1 bowel movement so far today. Still some mild discomfort with bowel movements and with eating. His bowel movement had less blood in it today
I started IV steroids last night after a negative C. difficile returned. Negative stool cultures just over a week ago.
Will continue the IV steroids for now, continue DVT prophylaxis
, Fecal calprotectin pending
Sent blood work for possible biologic in the near future
Plan for inpatient flexible sigmoidoscopy on Wednesday
Tomorrow okay for breakfast then clears for lunch and dinner and will do 2 enemas Wednesday morning. Patient is aware of the plan and is agreeable
Told him to get up and move around
Discussed with primary team
Original Note:
Today's Communication / Plan
-
etiology with concern for underling ulcerative colitis vs infectious vs other
slight improvement today with pain and less stool frequency but still blood in stools
stool cx and c-diff neg
IV steroid started 11/24
eventual flex sig-- if improving on steroids outpatient next week vs inpatient testing
cont PPI
will advance to low residue diet with supplement daily with wt loss
CRP <5, ESR 9, fecal daniela pending
cont lovenox as if active IBD high risk for DVT
hepatitis B neg, TB pending
pain control per hospitalist
Assessment / Plan
-
Donnie is a 19-year-old male with no significant past medical history who had an episode in December 2023 with acute onset bloody diarrhea who had no GI issues in the interim until September. In the September he started having urgent diarrhea now for the
past 2 to 3 weeks he has lost 15 pounds and has significant urgency abdominal cramping and bloody diarrhea found to have colitis on CT scan from the sigmoid to the transverse colon. CRP <5, ESR 9, fecal daniela pending.
-bloody stools
-CT with sigmoid to transverse colitis
-leukocytosis
-wt loss
PLAN:
etiology with concern for underling ulcerative colitis vs infectious vs other
slight improvement today with pain and less stool frequency but still blood in stools
stool cx and c-diff neg
IV steroid started 11/24
eventual flex sig-- if improving on steroids outpatient next week vs inpatient testing
cont PPI
will advance to low residue diet with supplement daily with wt loss
CRP <5, ESR 9, fecal daniela pending
cont Lovenox as if active IBD high risk for DVT
hepatitis B neg, TB pending
pain control per hospitalist
Subjective
Subjective
Date of Service: November 25, 2024
2 blood stools overnight with slight less frequency and less pain, on full liquid diet
Objective
Data Reviewed
Laboratory Data:
Laboratory Results
11/25/24 06:31
11/25/24 06:31
Laboratory Results
Total Bilirubin 0.9 mg/dl (0.2-1.3) 11/24/24 12:30
AST 24 U/L (17-59) 11/24/24 12:30
ALT 34 U/L (0-50) 11/24/24 12:30
Alkaline Phosphatase 56 U/L (38-126) 11/24/24 12:30
Vital Signs and I&O:
Vital Signs
Temp Pulse Resp BP Pulse Ox
98.1 F 72 15 108/63 97
11/25/24 07:17 11/25/24 07:17 11/25/24 07:17 11/25/24 07:17 11/25/24 07:17
Physical Exam
Physical Exam
HEENT: Anicteric and Moist mucous membranes
Cardiology: Normal Sinus Rhythm
Pulmonary: Clear
GI: Soft, Non Distended and Tender (minimal )
Extremities: No Edema
Neuro: Non Focal
[2024-11-25 08:40] LABS: Hepatitis B Core Ab, Total Negative (Negative)
[2024-11-25] MEDS: FLUSH (NSS) 1 FLUSH IV (09:25)
[2024-11-25] MEDS: PROTONIX 40 MG PO (09:26)
[2024-11-25 15:47] VITALS: BP 126/79; BP 127/79; BP 129/71
--- NOTE | 2024-11-25 18:00 | PTCARENOTE ---
Pt reports 3 episodes of diarrhea with blood (small amounts), today. Pt states that it is improving. Pt's low abdominal pain at its worse 2-3/10 with diarrhea, tolerating low residue diet, will monitor.
[2024-11-25] MEDS: LOVENOX 40 MG SC (18:07)
[2024-11-25 23:50] VITALS: BP 134/91
[2024-11-26] MEDS: SOLU-MEDROL PF 20 MG IV ×3 (05:18→21:20)
[2024-11-26 07:10] VITALS: BP 128/57
[2024-11-26 07:30] LABS: Hematocrit 43.4 % (39.0-52.0); Hemoglobin 15.2 g/dL (13.0-18.0); Mean Corpuscular Hgb 30.3 pg (27.0-31.0); Mean Corpuscular Volume 86.5 fL (80.0-94.0); Mean Platelet Volume 9.2 fL (7.4-10.4); Platelet Count 256 10^3/uL (130-400); Red Blood Cell Count 5.02 10^6/uL (4.70-6.10); Red Cell Dist. Width 12.7 % (11.5-14.5); White Blood Cell Count 15.7 10^3/uL (4.8-10.8)
[2024-11-26 07:44] LABS: ALT (SGPT) 28 U/L (0-50); AST (SGOT) 26 U/L (17-59); Albumin 4.7 g/dl (3.5-5.0); Alkaline Phosphatase 56 U/L (38-126); Blood Urea Nitrogen 15 mg/dl (9-20); Carbon Dioxide 29 mmol/L (22-30); Chloride 99 mmol/L (98-107); Estimated Creatinine Clearance 109 ml/min; Glucose 116 mg/dl (70-99); Potassium 4.7 mmol/L (3.5-5.1); Sodium 140 mmol/L (135-145); Total Bilirubin 0.6 mg/dl (0.2-1.3); Total Protein 6.8 g/dl (6.3-8.2); eGFR > 60.00
--- NOTE | 2024-11-26 08:26 | W.PN.HOSP.TC ---
Addendum entered and electronically signed by Iman Perez MD 11/26/24 20:30:
I saw and evaluated the patient independently. I reviewed the resident�s note and agree with findings and plan as documented by Dr. Brady.
GENERAL: well developed, well nourished, male in no apparent distress
HEENT: NC/AT
HEART: regular rate and rhythm, +S1, +S2
LUNGS : clear to auscultation bilaterally
ABDOM: soft, nontender, nondistended, + bowel sounds
EXT: no cyanosis, clubbing, or edema
NEUROLOGIC: grossly intact
Bloody diarrhea--Likely due to ulcerative colitis--Patient reports 15 LB weight loss in the past 3 weeks--Prior history of bloody stools 10 months ago--apprec GI--C. diff neg-- IV steroids--Patient was seen in the ED was sent on Augmentin without
any relief--Stool studies�negative for Salmonella/Shigella/Campylobacter, negative for C. difficile--Hepatitis B�negative, TB QuantiFERON pending--CT abdomen�evidence of sigmoid to transverse colon colitis--PPI, pain control--advance diet--FLEX sig
Wednesday
DVT prophylaxis�Lovenox
code status--Full code
Original Note:
Today's Communication/Plan
-
Continue steroids
Continue pantoprazole
Assessment / Plan
Assessment / Plan
19-year-old man presenting to the ED with abdominal pain and bloody diarrhea since 3 weeks.
Impression/plan
Bloody diarrhea
Likely due to ulcerative colitis (ruled out infectious etiology)
Patient reports 15 LB weight loss in the past 3 weeks
Prior history of bloody stools 10 months ago.
GI on board
Elevated white count-likely due to colitis
Patient was seen in the ED last week, was sent on Augmentin without any relief.
Stool studies�negative for Salmonella/Shigella/Campylobacter, negative for C. difficile
Fecal calprotectin pending
Hepatitis B�negative, TB QuantiFERON pending
CT abdomen�evidence of sigmoid to transverse colon colitis
Started on IV steroids
Continue PPI
Pain control�oxycodone as needed
Diet advanced�patient is able to tolerate solids.
Plan for flexible sigmoidoscopy on Wednesday
DVT prophylaxis�Lovenox
Full code
Anticipated Discharge: 24 - 48 hours
Subjective/Interval History
-
Date of Service: November 26, 2024
Patient reports having severe abdominal pain with bowel movement. No nausea/vomiting, is able to tolerate solids.
Objective Data
-
Labs:
Laboratory Results
11/26/24
06:05
WBC 15.7 H
Hgb 15.2
Hct 43.4
Plt Count 256
Sodium 140
Potassium 4.7
Chloride 99
Carbon Dioxide 29
BUN 15
Creatinine 1.0
Glucose 116 H
Calcium 9.0
Total Bilirubin 0.6
AST 26
ALT 28
Alkaline Phosphatase 56
Vital Signs:
Vital Signs
Temp Pulse Resp BP Pulse Ox
98.0 F 87 16 134/91 99
11/25/24 23:50 11/25/24 23:50 11/25/24 23:50 11/25/24 23:50 11/25/24 23:50
I&O
11/25/24 11/26/24 11/27/24
06:59 06:59 06:59
Intake Total 1440 / 1440
Balance 1440 / 1440
Physical Exam
-
General: No Apparent Distress
HEENT: Normocephalic and Atraumatic
Respiratory: Clear to Auscultation
Cardiac: Regular Rhythm and S1/S2
GI: Soft, Nontender, Nondistended and Normal Bowel Sounds
Skin: Warm and Dry
Neuro: Awake, Alert, Oriented and AO x 3
Psych: Calm
[2024-11-26 08:37] LABS: Absolute Neutrophils -Man Diff 11.4 10^3/uL (1.4-6.5); Band Neutrophils 22 % (0-3); Lymphocytes 12 % (20-51); Monocytes 15 % (2-9); Normal RBC Morphology Yes; Platelets Checked Yes; Segmented Neutrophils 51 % (42-75); Total Cells Counted 100
[2024-11-26] MEDS: PROTONIX 40 MG PO (09:51)
[2024-11-26 11:02] VITALS: BMI 24.4
--- NOTE | 2024-11-26 12:43 | W.PN.GI.CBS2 ---
Today's Communication / Plan
-
-- N.p.o. after midnight for flexible sigmoidoscopy tomorrow
-- Hold p.m. Lovenox
Assessment / Plan
-
Donnie is a 19-year-old male with no significant past medical history who had an episode in December 2023 with acute onset bloody diarrhea who had no GI issues in the interim until September. In the September he started having urgent diarrhea now for the
past 2 to 3 weeks he has lost 15 pounds and has significant urgency abdominal cramping and bloody diarrhea found to have colitis on CT scan from the sigmoid to the transverse colon. CRP <5, ESR 9, fecal daniela pending.
-bloody stools
-CT with sigmoid to transverse colitis
-leukocytosis
-wt loss
PLAN:
etiology with concern for underling ulcerative colitis vs infectious vs other
slight improvement today with pain and less stool frequency but still blood in stools
stool cx and c-diff neg
IV steroid started 11/24
eventual flex sig-- if improving on steroids outpatient next week vs inpatient testing
cont PPI
will advance to low residue diet with supplement daily with wt loss
CRP <5, ESR 9, fecal daniela pending
cont Lovenox as if active IBD high risk for DVT
hepatitis B neg, TB pending
pain control per hospitalist
11/26/2024: Hold Lovenox tonight; 2 enemas in the morning for flexible sigmoidoscopy
-- Not much improvement from baseline with the IV steroids so far
-- N.p.o. after midnight
Subjective
Subjective
Date of Service: November 26, 2024
Patient states he had 12 bowel movements yesterday all which were loose and most contained blood except in the last 3 were less blood
Objective
Data Reviewed
Laboratory Data:
Laboratory Results
11/26/24 06:05
02/02/25 06:05
Laboratory Results
Total Bilirubin 0.6 mg/dl (0.2-1.3) 11/26/24 06:05
AST 26 U/L (17-59) 11/26/24 06:05
ALT 28 U/L (0-50) 11/26/24 06:05
Alkaline Phosphatase 56 U/L (38-126) 11/26/24 06:05
Vital Signs and I&O:
Vital Signs
Temp Pulse Resp BP Pulse Ox
98.1 F 65 18 128/57 97
11/26/24 07:10 11/26/24 07:10 11/26/24 07:10 11/26/24 07:10 11/26/24 09:47
I&O
11/25/24 11/26/24 11/27/24
06:59 06:59 06:59
Intake Total 1440 / 1440
Balance 1440 / 1440
Physical Exam
Physical Exam
HEENT: Anicteric
GI: Soft, Non Distended and Tender (Minimal tenderness)
Extremities: No Edema
Neuro: Non Focal
[2024-11-26] MEDS: FLUSH (NSS) 1 FLUSH IV (14:11)
[2024-11-26 15:35] VITALS: BP 111/63
--- NOTE | 2024-11-26 17:07 | PTCARENOTE ---
Pt AAO x3, ZHENG well, ambulatory in room/to BR; rosa well. VSS. On room air- pulse ox 96%. Abd soft, non-tender, pt rosa PO; on clear liquid diet; aware of NPO past midnight for sigmoidoscopy 2/3. Pt reports loose brown BM's, states no bleeding
noted. Voids in BR without difficulty. Resting in bed at present, no c/o. Will continue to monitor.
[2024-11-26 23:57] VITALS: BP 98/56
[2024-11-27] VITALS (8 sets, daily range): BP systolic 12–119; BP diastolic 53–75
[2024-11-27] MEDS: SOLU-MEDROL PF 20 MG IV ×2 (05:20→15:32)
[2024-11-27 07:45] LABS: Hematocrit 39.8 % (39.0-52.0); Hemoglobin 13.6 g/dL (13.0-18.0); Mean Corp Hgb Conc. 34.2 g/dL (33.0-37.0); Mean Corpuscular Hgb 29.8 pg (27.0-31.0); Mean Corpuscular Volume 87.3 fL (80.0-94.0); Mean Platelet Volume 9.1 fL (7.4-10.4); Platelet Count 212 10^3/uL (130-400); Red Blood Cell Count 4.56 10^6/uL (4.70-6.10); Red Cell Dist. Width 12.9 % (11.5-14.5); White Blood Cell Count 13.2 10^3/uL (4.8-10.8)
[2024-11-27 08:13] LABS: ALT (SGPT) 29 U/L (0-50); AST (SGOT) 22 U/L (17-59); Albumin 3.7 g/dl (3.5-5.0); Alkaline Phosphatase 51 U/L (38-126); Blood Urea Nitrogen 13 mg/dl (9-20); Calcium 8.9 mg/dl (8.4-10.2); Carbon Dioxide 29 mmol/L (22-30); Chloride 100 mmol/L (98-107); Estimated Creatinine Clearance 109 ml/min; Glucose 108 mg/dl (70-99); Potassium 4.5 mmol/L (3.5-5.1); Sodium 136 mmol/L (135-145); Total Bilirubin 0.6 mg/dl (0.2-1.3); Total Protein 5.5 g/dl (6.3-8.2); eGFR > 60.00
[2024-11-27] MEDS: PROTONIX 40 MG PO (08:16)
[2024-11-27] MEDS: ASACOL, DELZICOL DR 800 MG PO ×2 (15:58→22:24)
--- NOTE | 2024-11-27 16:02 | CM ---
CM met with pt and his grandmother
Pt resides with his mother/Bouchra and father/Anthony
Pt currently working as an online personal service representative
He is insured through [facility] with Rx coverage
PCP- Shruti De La Rosa
Rx- Melany Chávez
Discharge Disposition- home, no needs
--- NOTE | 2024-11-27 16:42 | W.PN.HOSP.TC ---
Addendum entered and electronically signed by Saurav Mendoza MD 11/27/24 17:47:
Seen and examined by me independently in collaboration with the medical researcher.
Lab data and imaging data reviewed.
Addendum as below :
Status post flex sig today.
Currently back on diet. Continue with IV steroids and transition to oral prednisone likely in a.m. per GI.
Likely DC in a.m.
Original Note:
Today's Communication/Plan
-
low residue diet, pain control, hopeful d/c tomorrow if <4 bowel movements in 24hr.
Assessment / Plan
Assessment / Plan
19-year-old man presenting to the ED with abdominal pain and bloody diarrhea x3 week
#Abdominal pain
#Melana/hematochezia
- Patient reports 15 LB weight loss in the past 3 weeks w/ abdominal symptoms. Has h/o repeat episodes of bloody stools 10 months ago. Was seen in the ED last week, was sent on Augmentin without any relief.
- On Admission leukocytosis. Infectious workup negative. Fecal calprotectin pending
- Hepatitis B�negative, TB QuantiFERON pending
- CT abd/plv showing inflammatory changes in the sigmoid to transverse colon. Started on IV steroids
- Flex sig today demonstrating severe UC. Bx taken.
- C/w PPI
- Pain control�oxycodone prn
- Low Residue diet. If <4 BM in 24hr can go home on PO steroids w/ mesalamine with ultimate goal of bridging to biologic as outpatient.
DVT PPx�Lovenox
Full code
Anticipated Discharge: Within 24 hours
Subjective/Interval History
-
Feels well this morning. He had one episode of painless bowel movement with minimal blood. He has no new fevers, chills, joint pain, rash, diarrhea, nauzea or vomiting.
Objective Data
-
Labs:
Laboratory Results
11/27/24
07:29
WBC 13.2 H
Hgb 13.6
Hct 39.8
Plt Count 212
Sodium 136
Potassium 4.5
Chloride 100
Carbon Dioxide 29
BUN 13
Creatinine 1.0
Glucose 108 H
Calcium 8.9
Total Bilirubin 0.6
AST 22
ALT 29
Alkaline Phosphatase 51
Vital Signs:
Vital Signs
Temp Pulse Resp BP Pulse Ox
97.3 F 77 18 119/73 97
11/27/24 15:33 11/27/24 15:33 11/27/24 15:33 11/27/24 15:33 11/27/24 15:33
I&O
11/26/24 11/27/24 11/28/24
06:59 06:59 06:59
Intake Total 1440 / 1440 1200 / 1200
Balance 1440 / 1440 1200 / 1200
Review of Systems
-
History Source: Patient
Constitutional: Reports No Symptoms and Fever
EENT: Reports No Symptoms Reported
Respiratory: Reports No Symptoms
Cardiac: Reports No Symptoms
Abdomen/GI: Reports Bloody Stools; Denies Abdominal Pain, Nausea, Vomiting, Diarrhea or Constipated
Breast: Reports N/A
Genitourinary: Reports No Symptoms
Musculoskeletal: Reports No Symptoms
Skin: Reports No Symptoms
Neuro: Reports No Symptoms
Hematologic / Lymphatic: Reports No Symptoms
Physical Exam
-
General: Well Developed, Well Nourished, No Apparent Distress and Comfortable
HEENT: Normocephalic, Atraumatic, Moist Mucous Membranes, Anicteric, [place] Conjunctivae, PERRLA, Nose Appears Normal and Ears Appear Normal
Respiratory: Clear to Auscultation; Negative Wheezes, Rales or Rhonchi
Cardiac: Regular Rhythm and S1/S2; Negative Murmur or Rub
Breast: N/A
GI: Soft, Nontender and Nondistended
Musculoskeletal: No Clubbing, No Cyanosis and No Edema
Skin: Warm and Dry
Neuro: AO x 3 and Nonfocal/Grossly Intact
[2024-11-27] MEDS: ZOFRAN 4 MG IV (21:44)
[2024-11-27] MEDS: ROXICODONE 5 MG PO (21:44)
--- NOTE | 2024-11-28 06:56 | W.PN.HOSP.TC ---
Addendum entered and electronically signed by Saurav Mendoza MD 11/28/24 16:12:
Seen and examined by me independently in collaboration with the medical transcriber.
Lab data and imaging data reviewed.
Addendum as below :
Improved GI symptoms. Appreciate GI input.
Medically stable for discharge on steroid taper and follow with GI as outpatient.
Total time of discharge 32 minutes
Original Note:
Today's Communication/Plan
-
D/c today. Low residue diet. Prednisone taper/mesalamine.
Assessment / Plan
Assessment / Plan
19-year-old man presenting to the ED with abdominal pain and bloody diarrhea x3 week
#Newly Diagnosed Ulcerative Colitis
#Abdominal pain
#Melana/hematochezia
- Patient reports 15 LB weight loss in the past 3 weeks w/ abdominal symptoms. Has h/o repeat episodes of bloody stools 10 months ago. Was seen in the ED last week, was sent home on Augmentin without any relief.
- On Admission had leukocytosis. Infectious workup negative. Fecal calprotectin pending
- Hepatitis B�negative, TB QuantiFERON pending
- CT abd/plv showing inflammatory changes in the sigmoid to transverse colon. Started on IV steroids
- Flex sig today demonstrating severe UC. Bx taken.
#Transaminitis -Cmp today showing mild elevation in AST/ALT, tbili wnl. Likely consequence of procedure vs. inflammatory condition, no symptoms, no RUQ pain, fevers, chills. Will repeat BMP in 1 week.
Discharge today on LRD, with prednisone taper & mesalamine. To follow up outpatient with Dr. Ramirez.
DVT PPx�Lovenox
Full code
Anticipated Discharge: Today
Subjective/Interval History
-
Feeling well this morning. Had 3 bloody bowel movements which were painless. His abdominal pain is much improved. There were no acute events overnight.
Objective Data
-
Labs:
Laboratory Results
11/28/24
06:36
WBC Pending
Hgb Pending
Hct Pending
Plt Count Pending
Sodium Pending
Potassium Pending
Chloride Pending
Carbon Dioxide Pending
BUN Pending
Creatinine Pending
Glucose Pending
Calcium Pending
Total Bilirubin Pending
AST Pending
ALT Pending
Alkaline Phosphatase Pending
Vital Signs:
Vital Signs
Temp Pulse Resp BP Pulse Ox
98.7 F 67 16 104/55 97
11/27/24 23:57 11/27/24 23:57 11/27/24 23:57 11/27/24 23:57 11/27/24 23:57
I&O
11/26/24 11/27/24 11/28/24
06:59 06:59 06:59
Intake Total 1440 / 1440 1200 / 1200 480 / 480
Balance 1440 / 1440 1200 / 1200 480 / 480
Review of Systems
-
History Source: Patient
Constitutional: Reports No Symptoms
EENT: Reports No Symptoms Reported
Respiratory: Reports No Symptoms
Cardiac: Reports No Symptoms
Abdomen/GI: Reports Bloody Stools; Denies Abdominal Pain, Nausea, Vomiting, Diarrhea or Constipated
Breast: Reports N/A
Genitourinary: Reports No Symptoms
Musculoskeletal: Reports No Symptoms
Skin: Reports No Symptoms
Neuro: Reports No Symptoms
Physical Exam
-
General: Well Developed, Well Nourished, No Apparent Distress and Comfortable
HEENT: Normocephalic, Atraumatic, Moist Mucous Membranes, Anicteric, [place] Conjunctivae, PERRLA, Nose Appears Normal and Ears Appear Normal
Respiratory: Clear to Auscultation; Negative Wheezes, Rales or Rhonchi
Cardiac: Regular Rhythm and S1/S2; Negative Murmur or Rub
Breast: N/A
GI: Soft, Nontender, Nondistended and Normal Bowel Sounds
Musculoskeletal: No Clubbing, No Cyanosis and No Edema
Skin: Warm and Dry
Neuro: AO x 3
Psych: Calm
[2024-11-28 07:41] LABS: Hematocrit 41.1 % (39.0-52.0); Mean Corp Hgb Conc. 34.1 g/dL (33.0-37.0); Mean Corpuscular Hgb 30.1 pg (27.0-31.0); Mean Corpuscular Volume 88.4 fL (80.0-94.0); Mean Platelet Volume 9.3 fL (7.4-10.4); Platelet Count 206 10^3/uL (130-400); Red Blood Cell Count 4.65 10^6/uL (4.70-6.10); Red Cell Dist. Width 12.8 % (11.5-14.5); White Blood Cell Count 14.6 10^3/uL (4.8-10.8)
[2024-11-28 07:45] VITALS: BP 130/63
[2024-11-28 08:10] LABS: ALT (SGPT) 88 U/L (0-50); AST (SGOT) 62 U/L (17-59); Albumin 3.6 g/dl (3.5-5.0); Alkaline Phosphatase 51 U/L (38-126); Blood Urea Nitrogen 15 mg/dl (9-20); Calcium 8.7 mg/dl (8.4-10.2); Carbon Dioxide 26 mmol/L (22-30); Chloride 102 mmol/L (98-107); Estimated Creatinine Clearance 99 ml/min; Glucose 79 mg/dl (70-99); Potassium 4.4 mmol/L (3.5-5.1); Sodium 138 mmol/L (135-145); Total Bilirubin 0.5 mg/dl (0.2-1.3); Total Protein 5.4 g/dl (6.3-8.2); eGFR > 60.00
[2024-11-28 08:14] LABS: Absolute Neutrophils -Man Diff 7.8 10^3/uL (1.4-6.5); Atypical Lymphocytes 8 %; Band Neutrophils 21 % (0-3); Eosinophils 1 % (0-6); Lymphocytes 24 % (20-51); Metamyelocytes 6 % (-); Monocytes 7 % (2-9); Platelets Checked Yes; Segmented Neutrophils 33 % (42-75)
[2024-11-28 08:15] LABS: Normal RBC Morphology Yes; Total Cells Counted 100
--- NOTE | 2024-11-28 08:30 | W.PN.GI.CBS2 ---
Today's Communication / Plan
-
Please see assessment and plan for details.
Assessment / Plan
-
1. Ulcerative colitis: New, severe, Mendoza 3, unclear extent, overall doing much better since initiation of steroids, now on prednisone and continuing to improve. At this point he is okay to DC from GI standpoint, continue prednisone 40 mg for
another 5 days then taper 5 mg every 5 days. Will continue mesalamine as well, to follow-up with Dr. Ramirez in the next couple of weeks to discuss probable biologic and long-term management.
Subjective
Subjective
Date of Service: November 28, 2024
Patient feeling okay, no bowel movements overnight, had small movements this morning with still blood-tinged, hemoglobin remained stable. Frequency and pain overall much improved since admission.
Objective
Data Reviewed
Laboratory Data:
Laboratory Results
11/28/24 06:36
11/28/24 06:36
Laboratory Results
Total Bilirubin 0.5 mg/dl (0.2-1.3) 11/28/24 06:36
AST 62 U/L (17-59) H 11/28/24 06:36
ALT 88 U/L (0-50) H 11/28/24 06:36
Alkaline Phosphatase 51 U/L (38-126) 11/28/24 06:36
Vital Signs and I&O:
Vital Signs
Temp Pulse Resp BP Pulse Ox
98.7 F 67 16 104/55 97
11/27/24 23:57 11/27/24 23:57 11/27/24 23:57 11/27/24 23:57 11/27/24 23:57
I&O
11/27/24 11/28/24 11/29/24
06:59 06:59 06:59
Intake Total 1200 / 1200 960 / 960
Balance 1200 / 1200 960 / 960
Physical Exam
Physical Exam
General: NAD
Abdomen: normal bowel sounds, soft, no tenderness, no masses or bruits, no ascites
[2024-11-28] MEDS: FLUSH (NSS) 1 FLUSH IV (09:02)
[2024-11-28] MEDS: ASACOL, DELZICOL DR 800 MG PO (09:02)
[2024-11-28] MEDS: PROTONIX 40 MG PO (09:02)
[2024-11-28] MEDS: DELTASONE 40 MG PO (09:02)
--- NOTE | 2024-11-28 11:59 | CM ---
Chart reviewed. Pt is stable for d/c today
No CM needs identified at this time
Plan: Home; no needs
[2024-11-28 12:00] VITALS: BP 121/73
--- NOTE | 2024-11-28 16:40 | W.DCSUMMARY ---
Discharge Summary
Discharge Data
Date of Admission: 11/24/24
Date of Discharge: 11/28/24
Total time spent discharging patient (in min): >30min
-
Pending Results: No
Hospital Course
Discharging Physician : Dr. Amanuel Bojorquez, Dr. Saurav Mendoza
Disposition : Home
Primary care physician : Dr. Shruti De La Rosa
Principal Discharge diagnosis : Ulcerative Colitis, Hematochezia, Abdominal Pain, Transaminitis
Chronic Discharge diagnosis : None
Hospital Course :
Donnie Campos presented to the [facility] with recurrence of bloody diarrhea and abdominal pain. Of note, he had been discharged several days prior for similar symptoms for which he was given Augmentin with little relief. A CT of the abdomen and pelvis
was obtained (impression below) which demonstrated findings suggestive for colitis. GI was consulted and clinical suspicion was raised for Ulcerative Colitis. A flexible sigmoidoscopy was done which demonstrated Ulcerative Colitis (other findings
below). His abdominal pain was managed with Roxicodone. His UC was managed with IV methylprednisolone, prednisone, and mesalamine. His diet was advanced slowly after the sigmoidoscopy. He was deemed medically stable for discharge and sent home on a
prednisone taper and oral mesalamine. He was set up for a follow up with Dr. Ramirez as an outpatient for further management of newly diagnosed Ulcerative Colitis. CMP done on the day of discharge showed mild transaminitis. He was without symptoms and
clinical suspicion was low. He was given a physical script for a repeat CMP in 1 week and given instructions to see his PCP within one week of discharge.
Important imaging findings :
CT Abd/pel W Iv And Oral Contr:
Markedly limited evaluation of large bowel due to marked paucity of intra-abdominal fat and lack of oral contrast opacification distal to the hepatic flexure of the large bowel. Findings suspicious for concentric wall thickening of the transverse
colon, descending colon and sigmoid, such as COLITIS. No findings to suggest colonic pneumatosis, intestinal obstruction or free air. Small volume free fluid in the dependent true pelvis.
Procedure findings :
Flexible Sigmoidoscopy:
Findings:
The digital rectal exam findings include anal spasm.
Inflammation was found in a continuous and circumferential pattern from the anus to the sigmoid colon. This was graded as Mendoza Score 3 (severe, with spontaneous bleeding, ulcerations), and when compared to the previous examination, the findings are
new.
Biopsies were taken with a cold forceps for histology.
Estimated blood loss was minimal.
Impression:
New ulcerative colitis (with unclear extent of disease)
Anal spasm found on digital rectal exam.
Severe (Mendoza Score 3) ulcerative colitis, new since the last examination (extent unknown)
MENDOZA 3 to the sigmoid colon. Biopsied.
Discharge Plan
-
Patient Disposition: Home (Routine Discharge)
Discharge Diagnosis/Procedures: Ulcerative Colitis
Condition: Good
Diet: Low Residue
Activity: No restrictions
Driving Restrictions: As prior to admission
Bathing Restrictions: None
Blood Work: Repeat CMP x1 week
Instructions: Ulcerative colitis in adults, Low-fiber diet
Referrals:
Shruti De La Rosa MD [Family Provider] - in one week
()
Cherrie Ramirez DO [Active] - 12/06/24 1:30 pm
Additional Discharge Medication Instructions: PREDNISONE TAPER:
Take 40mg (8 tabs) x5 days
Then 35mg (7 tabs) x5days
Then 30mg (6 tabs) x5days
Then 25mg (5 tabs) x5days
Then 20mg (4 tabs) x5days
Then 15mg (5 tabs) x5days
Then 10mg (5 tabs) x5days
Then 5mg (5 tabs) x5days
Then stop, unless otherwise directed by Dr. Ramirez
Prescriptions:
New
mesalamine 400 mg Capsule (With Del Rel Tablets)
800 mg PO TID 30 Days Qty: 180 0RF
prednisone 5 mg tablet
5 mg PO DIRECTED Qty: 180 0RF
Rx Instructions:
8tabs x5 days, then reduce by 5mg every 5 days until seen by Dr. Ramirez
Discharge Orders:
Discharge Patient (As Directed); Ordered 11/28/24
Ordered By: Amanuel Bojorquez
Discharge Date and Time
Discharge Date/Time: 11/28/24 12:36
Print Language: NAURUAN
[2024-11-29 16:21] LABS: Quantiferon Mitogen minus NIL 1.43 IU/mL; Quantiferon NIL 0.03 IU/mL; Quantiferon Plus TB1 minus NIL 0.01 IU/mL (<=0.34); Quantiferon TB Gold Plus Negative (Negative)
[2024-11-30 03:48] LABS: Calprotectin, Fecal >3000 ug/g (<=49)
== END 2024-11-28 12:36 | disposition home or self-care (01) | DRG 387 ==
LOC: 4 EAST ACU 20:01
PROVIDERS: Physician Assistant; Student in an Organized Health Care Education/Training Program; ADMITTING PHYSICIAN Internal Medicine; ATTENDING PHYSICIAN Internal Medicine; EMERGENCY PHYSICIAN Emergency Medicine; FAMILY PHYSICIAN Emergency Medicine; OTHER PHYSICIAN Internal Medicine
PROC: 0DBN8ZX Excision of Sigmoid Colon, Via Natural or Artificial Opening Endoscopic, Diagnostic (ICD-10-PCS; 2024-11-27)
DX: K51.911 Ulcerative colitis, unspecified with rectal bleeding (principal); K59.4 Anal spasm
CPT/HCPCS: 88305; 74177; 80048; 80053; 83993; 85025; 85027; 85652; 86140; 86480; 86704; 87324; 87340; 87449; 88342; 96360; 96361; 99284; Q9967

== ENCOUNTER 2025-07-25 06:20 | Day surgery (SDC) | payer OTHER, SELFPAY | END 2025-07-25 12:39 | disposition home or self-care (01) | LOC: GI 06:20 | PROVIDERS: ATTENDING PHYSICIAN Internal Medicine; FAMILY PHYSICIAN Emergency Medicine | DX: K51.90 Ulcerative colitis, unspecified, without complications (principal); K51.40 Inflammatory polyps of colon without complications; K63.5 Polyp of colon | CPT/HCPCS: 45380; 88305 ==